=== PATIENT | male | born 1995 | race Caucasian/White ===

== ENCOUNTER 2016-11-01 17:18 | Emergency (ER) | payer OTHER ==
[2016-11-01] MEDS ORDERED: ACETAMINOPHEN 325 MG TAB As Ordered ONE (18:27)
--- NOTE | 2016-11-01 19:43 | EDDOCDS ---
Nurse's Notes [facility] Name: Jeff Montaño Age: 21 yrs Sex: Male : 1995 Arrival Date: 11/01/2016 Time: 17:18 Bed PD Private MD: NO PRIMARY PHYSICIAN, . Diagnosis: Acute upper respiratory infection, unspecified Presentation: 11/01 17:31 Presenting complaint: Patient states: he has a sore throat, coughing, runny nose, ms18 headache, and chest is sore from coughing. Pt states that it started yesterday morning. Adult Sepsis Screening: The patient does not have new or worsening altered mentation. Patient's respiratory rate is less than 22. Systolic blood pressure is greater than 100. Patient has a qSOFA score of 0- Negative Sepsis Screen. Suicide/Homicide risk assessment- the patient denies having any suicidal and/or homicidal ideations and does not present with any other emotional, behavioral or mental health complaints. Status: Patient is not a telegraphic service dispatcher or dependent. Transition of care: patient was not received from another setting of care. 17:31 Acuity: MEERA Level 4 ms18 17:31 Method Of Arrival: Walkin/Carried/Asstd ms18 Triage Assessment: 17:33 General: Appears in no apparent distress, Behavior is appropriate for age, cooperative. ms18 Pain: Location: face, head, throat, back Pain currently is 8 out of 10 on a pain scale. HIV screening NA for this visit Offered previously. Neurological: No deficits noted. Respiratory: Airway is patent Respiratory effort is even, unlabored, Reports cough that is productive. Derm: Skin is pink, warm & dry. Historical: - Allergies: no known allergies; - Home Meds: 1. none - PMHx: none; - PSHx: none; - Social history: Smoking status: Patient uses tobacco products, current every day smoker. No barriers to communication noted, The patient speaks fluent Tongan. - Family history: Not pertinent. - : The pt / caregiver states he / she is not on anticoagulants. Home medication list is obtained from the patient. - Exposure Risk Screening:: None identified. Screenin:32 Screening information is obtained from the patient. Fall risk: No risks identified. jjr Assistance ADL's: requires no assistance with activities of daily living. Abuse/DV Screen: The patient / caregiver reports he/she is: not in a situation that causes fear, pain or injury. Nutritional screening: No deficits noted. Advance Directives: There is no active DNR order. home support is adequate. Assessment: 18:31 General: Appears in no apparent distress, Behavior is appropriate for age. jjr Neurological: No deficits noted. Respiratory: Airway is patent Respiratory effort is even, unlabored, Respiratory pattern is regular. Derm: Skin is dry, Skin is flushed, Skin temperature is hot. 19:32 Reassessment: Patient appears in no apparent distress at this time. Patient states ttb feeling better. Patient states symptoms have improved. pt resting on stretcher. PA aware of vitals. . 19:40 Adult Sepsis Screening: The patient does not have new or worsening altered mentation. ttb Patient's respiratory rate is less than 22. Systolic blood pressure is greater than 100. Patient has a qSOFA score of 0- Negative Sepsis Screen. Neurological: Level of Consciousness is awake, alert. Respiratory: Airway is patent Respiratory effort is even, unlabored, Respiratory pattern is regular, symmetrical. Vital Signs: 17:20 BP 139 / 77 RA Sitting (auto/reg); Pulse 118; Resp 18; Temp 103.6(O); Pulse Ox 99% on rs6 R/A; Weight 90.72 kg (R); Height 5 ft. 10 in. (177.80 cm) (M); Pain 7/10; 19:29 BP 144 / 61; Pulse 100; Resp 18; Temp 100.1(T); Pulse Ox 96% on R/A; ttb 17:20 Body Mass Index 28.70 (90.72 kg, 177.80 cm) [facility] Vitals: 17:20 Log In Time: November 01, 2016 at 17:20. 6 ED Course: 17:19 Patient visited by Joan Palacios PCA. ct3 17:19 Patient moved to Waiting ct3 17:20 NO PRIMARY PHYSICIAN, . is Private Physician. rs6 17:22 Patient visited by Meena Alegria PCA. rs6 17:22 Patient moved to Pre RCE rs6 17:32 Triage Initiated ms18 17:36 Patient moved to Triage 2 jb5 17:40 Michael Glasgow PA is PHCP. btw 17:40 Justin Keenan MD is Attending Physician. btw 17:40 Patient visited by Michael Glasgow PA. btw 18:13 [facility]cd[facility]. dk1 18:13 Justin Keenan MD is Attending Physician. dk1 18:24 Patient moved to PD jjr 18:31 -Influenza A&B Rapid Antigen - Nose Sent. jjr 18:32 Patient visited by Catrachita Nielsen RN. jjr 18:32 The patient / caregiver is instructed regarding the plan of care and ED course. jjr 19:33 Patient visited by Elizabeth Roque RN. ttb 19:34 [facility] is Referral Physician. dk1 19:40 Accompanied by Significant Other, Patient has correct armband on for positive ttb identification. 19:40 No IV's were initiated during this patient's visit. No procedures done that require ttb assistance. Labs drawn. (by ED staff). Administered Medications: 18:31 Drug: Acetaminophen 975 mg [acetaminophen 325 mg tablet (3 tabs)] Route: PO; jjr Order Results: Lab Order: -Influenza A&B Rapid Antigen - Nose; SPEC'M 11/01/16 18:28 Test: INFLUENZA A RAPID SCR by ICA; Value: INFLUENZA A RESULTS NEGATIVE; Status: F Test: INFLUENZA A RAPID SCR by ICA; Value: Comments:; Status: F Test: INFLUENZA B RAPID SCR by ICA; Value: INFLUENZA B RESULTS NEGATIVE; Status: F Test Note: ; The Influenza test is a direct rapid immunoassay for the qualitative detection of Influenza viral antigen. Cell culture (Viral Culture) testing should be considered to confirm NEGATIVE results and to assist in detecting other viruses that can provide similar clinical symptoms. Please contact the lab within 24 hours ([phone]) if confirmatory testing is desired. Outcome: 19:35 Discharge ordered by Provider. dk1 19:40 Discharge Assessment: Patient awake, alert and oriented x 3. No cognitive and/or ttb functional deficits noted. Patient verbalized understanding of disposition instructions. Patient awake and alert. patient administered narcotics - no. The following High Risk Discharge criteria are identified: None. Discharged to home ambulatory, with significant other. Condition: good Condition: stable Condition: improved. Discharge instructions given to patient, significant other, Instructed on discharge instructions, follow up and referral plans. medication usage, Demonstrated understanding of instructions, medications, Pt was receptive of discharge instructions/ teaching. Prescriptions given X 4, Work note provided to patient. No special radiology studies were completed. Property :Personal belongings accompany Pt. 19:42 Patient left the ED. ttb Signatures: Hedy Underwood, RING STRIKER RING STRIKER jb5 Marlon Mcdonough PA-C PAYani dk1 Catrachita Nielsen, RN RN Michael Lopes PA PA btw Joan Palacios, RING STRIKER RING STRIKER ct3 Elizabeth Roque RN RN ttb Ritu Calderon RN RN ms18 Meena Alegria, RING STRIKER RING STRIKER rs6 MTDD
--- NOTE | 2016-11-01 19:43 | EDDOCDS ---
Physician Documentation [facility] Name: Jeff Montaño Age: 21 yrs Sex: Male : 1995 Arrival Date: 11/01/2016 Time: 17:18 Bed PD Private MD: NO PRIMARY PHYSICIAN, . Disposition: 11/01/16 19:35 Discharged to Home/Self Care. Impression: Acute upper respiratory infection, unspecified. - Condition is Stable. - Discharge Instructions: Upper Respiratory Infection, Adult. - Prescriptions for Ibuprofen 800 mg Oral Tablet - take 1 tablet by ORAL route every 8 hours As needed take with food; 30 tablet. Tylenol 325 mg Oral Tablet - take 2 tablet by ORAL route every 6 hours as needed; 1 bottle. Mucinex 600 mg - take 1 tablet by ORAL route 2 times per day; 30 tablet. benzonatate 200 mg Oral Capsule - take 1 capsule by ORAL route 3 times per day As needed; 30 capsule. - Medication Reconciliation, Local Pharmacy Hours, Work Release Form - 2 day form. - [facility] up: [facility]; When: 4 - 5 days; Reason: Continuance of care. Follow up: Emergency Department; When: As needed; Reason: Worsening of conditions. - Problem is new. - Symptoms have improved. Historical: - Allergies: no known allergies; - Home Meds: 1. none - PMHx: none; - PSHx: none; - Social history: Smoking status: Patient uses tobacco products, current every day smoker. No barriers to communication noted, The patient speaks fluent Botswanan. - Family history: Not pertinent. - : The pt / caregiver states he / she is not on anticoagulants. Home medication list is obtained from the patient. - Exposure Risk Screening:: None identified. Vital Signs: 11/01 17:20 BP 139 / 77 RA Sitting (auto/reg); Pulse 118; Resp 18; Temp 103.6(O); Pulse Ox 99% on rs6 R/A; Weight 90.72 kg / 200 lbs (R); Height 5 ft. 10 in. (177.80 cm) (M); Pain 7/10; 19:29 BP 144 / 61; Pulse 100; Resp 18; Temp 100.1(T); Pulse Ox 96% on R/A; ttb 17:20 Body Mass Index 28.70 (90.72 kg, 177.80 cm) rs6 MDM: 18:22 Acetaminophen Tablet 975 mg PO once ordered. dk1 18:22 Obtain sample by nasopharyngeal swab ordered. dk1 18:24 -Influenza A&B Rapid Antigen - Nose Ordered. EDMS 19:29 Recheck Vital Signs, perform reassessment and enter into [employer] ordered. dk1 Administered Medications: 18:31 Drug: Acetaminophen 975 mg [acetaminophen 325 mg tablet (3 tabs)] Route: PO; jjr Signatures: Dispatcher [employer] EDMS Marlon Mcdonough PA-C PA-C dk1 Elizabeth Roque, RN RN ttRitu Cordero RN RN ms18 Catrachita Nielsen RN jjr MTDD
--- NOTE | 2016-11-03 20:43 | EDDOCDS ---
Physician Documentation [facility] Name: Jeff Montaño Age: 21 yrs Sex: Male : 1995 Arrival Date: 11/01/2016 Time: 17:18 Bed PD Private MD: NO PRIMARY PHYSICIAN, . Disposition: 11/01/16 19:35 Discharged to Home/Self Care. Impression: Acute upper respiratory infection, unspecified. - Condition is Stable. - Discharge Instructions: Upper Respiratory Infection, Adult. - Prescriptions for Ibuprofen 800 mg Oral Tablet - take 1 tablet by ORAL route every 8 hours As needed take with food; 30 tablet. Tylenol 325 mg Oral Tablet - take 2 tablet by ORAL route every 6 hours as needed; 1 bottle. Mucinex 600 mg - take 1 tablet by ORAL route 2 times per day; 30 tablet. benzonatate 200 mg Oral Capsule - take 1 capsule by ORAL route 3 times per day As needed; 30 capsule. - Medication Reconciliation, Local Pharmacy Hours, Work Release Form - 2 day form. - Follow up: [facility]; When: 4 - 5 days; Reason: Continuance of care. Follow up: Emergency Department; When: As needed; Reason: Worsening of conditions. - Problem is new. - Symptoms have improved. Historical: - Allergies: no known allergies; - Home Meds: 1. none - PMHx: none; - PSHx: none; - Social history: Smoking status: Patient uses tobacco products, current every day smoker. No barriers to communication noted, The patient speaks fluent Lebanese. - Family history: Not pertinent. - : The pt / caregiver states he / she is not on anticoagulants. Home medication list is obtained from the patient. - Exposure Risk Screening:: None identified. Vital Signs: 11/01 17:20 BP 139 / 77 RA Sitting (auto/reg); Pulse 118; Resp 18; Temp 103.6(O); Pulse Ox 99% on rs6 R/A; Weight 90.72 kg / 200 lbs (R); Height 5 ft. 10 in. (177.80 cm) (M); Pain 7/10; 19:29 BP 144 / 61; Pulse 100; Resp 18; Temp 100.1(T); Pulse Ox 96% on R/A; ttb 17:20 Body Mass Index 28.70 (90.72 kg, 177.80 cm) rs6 MDM: 18:22 Acetaminophen Tablet 975 mg PO once ordered. dk1 18:22 Obtain sample by nasopharyngeal swab ordered. dk1 18:24 -Influenza A&B Rapid Antigen - Nose Ordered. EDMS 19:29 Recheck Vital Signs, perform reassessment and enter into MedHost ordered. dk1 19:44 [facility] Payment Agreement was scanned into [employer] and attached to record. 5 11/02 10:32 T-Sheet-- Draft Copy was scanned into [employer] and attached to record. mm15 Administered Medications: 11/01 18:31 Drug: Acetaminophen 975 mg [acetaminophen 325 mg tablet (3 tabs)] Route: PO; jjr Signatures: Dispatcher [employer] EDMS Marlon Mcdonough PA-C PA-C dk1 Elizabeth Roque, RN RN ttb Jade Lal mm15 Ritu Calderon RN RN ms18 David Urena jp5 Catrachita Nielsen RN jjr The chart was reviewed and I authenticate all verbal orders and agree with the evaluation and treatment provided.Attachments: 19:44 [facility] Payment Agreement 5 11/02 10:32 T-Sheet-- Draft Copy mm15 Chart Complete MTDD
--- NOTE | 2016-11-03 20:43 | EDDOCDS ---
Physician Documentation [facility] Name: Jeff Montaño Age: 21 yrs Sex: Male : 1995 Arrival Date: 11/01/2016 Time: 17:18 Bed PD Private MD: NO PRIMARY PHYSICIAN, . Disposition: 11/01/16 19:35 Discharged to Home/Self Care. Impression: Acute upper respiratory infection, unspecified. - Condition is Stable. - Discharge Instructions: Upper Respiratory Infection, Adult. - Prescriptions for Ibuprofen 800 mg Oral Tablet - take 1 tablet by ORAL route every 8 hours As needed take with food; 30 tablet. Tylenol 325 mg Oral Tablet - take 2 tablet by ORAL route every 6 hours as needed; 1 bottle. Mucinex 600 mg - take 1 tablet by ORAL route 2 times per day; 30 tablet. benzonatate 200 mg Oral Capsule - take 1 capsule by ORAL route 3 times per day As needed; 30 capsule. - Medication Reconciliation, Local Pharmacy Hours, Work Release Form - 2 day form. - Follow up: [facility]; When: 4 - 5 days; Reason: Continuance of care. Follow up: Emergency Department; When: As needed; Reason: Worsening of conditions. - Problem is new. - Symptoms have improved. Historical: - Allergies: no known allergies; - Home Meds: 1. none - PMHx: none; - PSHx: none; - Social history: Smoking status: Patient uses tobacco products, current every day smoker. No barriers to communication noted, The patient speaks fluent Ugandan. - Family history: Not pertinent. - : The pt / caregiver states he / she is not on anticoagulants. Home medication list is obtained from the patient. - Exposure Risk Screening:: None identified. Vital Signs: 11/01 17:20 BP 139 / 77 RA Sitting (auto/reg); Pulse 118; Resp 18; Temp 103.6(O); Pulse Ox 99% on rs6 R/A; Weight 90.72 kg / 200 lbs (R); Height 5 ft. 10 in. (177.80 cm) (M); Pain 7/10; 19:29 BP 144 / 61; Pulse 100; Resp 18; Temp 100.1(T); Pulse Ox 96% on R/A; ttb 17:20 Body Mass Index 28.70 (90.72 kg, 177.80 cm) rs6 MDM: 18:22 Acetaminophen Tablet 975 mg PO once ordered. dk1 18:22 Obtain sample by nasopharyngeal swab ordered. dk1 18:24 -Influenza A&B Rapid Antigen - Nose Ordered. EDMS 19:29 Recheck Vital Signs, perform reassessment and enter into MedHost ordered. dk1 19:44 [facility] Payment Agreement was scanned into [employer] and attached to record. 5 11/02 10:32 T-Sheet-- Draft Copy was scanned into [employer] and attached to record. mm15 Administered Medications: 11/01 18:31 Drug: Acetaminophen 975 mg [acetaminophen 325 mg tablet (3 tabs)] Route: PO; jjr Signatures: Dispatcher [employer] EDMS Marlon Mcdonough PA-C PA-C dk1 Elizabeth Roque, RN RN ttb Jade Lal mm15 Ritu Calderon RN RN ms18 David Urena jp5 Catrachita Nielsen RN jjr The chart was reviewed and I authenticate all verbal orders and agree with the evaluation and treatment provided.Attachments: 19:44 [facility] Payment Agreement 5 11/02 10:32 T-Sheet-- Draft Copy mm15 Chart Complete MTDD
--- NOTE | 2016-11-03 20:43 | EDDOCDS ---
Nurse's Notes [facility] Name: Jeff Montaño Age: 21 yrs Sex: Male : 1995 Arrival Date: 11/01/2016 Time: 17:18 Bed PD Private MD: NO PRIMARY PHYSICIAN, . Diagnosis: Acute upper respiratory infection, unspecified Presentation: 11/01 17:31 Presenting complaint: Patient states: he has a sore throat, coughing, runny nose, ms18 headache, and chest is sore from coughing. Pt states that it started yesterday morning. Adult Sepsis Screening: The patient does not have new or worsening altered mentation. Patient's respiratory rate is less than 22. Systolic blood pressure is greater than 100. Patient has a qSOFA score of 0- Negative Sepsis Screen. Suicide/Homicide risk assessment- the patient denies having any suicidal and/or homicidal ideations and does not present with any other emotional, behavioral or mental health complaints. Status: Patient is not a sales service representative or dependent. Transition of care: patient was not received from another setting of care. 17:31 Acuity: MEERA Level 4 ms18 17:31 Method Of Arrival: Walkin/Carried/Asstd ms18 Triage Assessment: 17:33 General: Appears in no apparent distress, Behavior is appropriate for age, cooperative. ms18 Pain: Location: face, head, throat, back Pain currently is 8 out of 10 on a pain scale. HIV screening NA for this visit Offered previously. Neurological: No deficits noted. Respiratory: Airway is patent Respiratory effort is even, unlabored, Reports cough that is productive. Derm: Skin is pink, warm & dry. Historical: - Allergies: no known allergies; - Home Meds: 1. none - PMHx: none; - PSHx: none; - Social history: Smoking status: Patient uses tobacco products, current every day smoker. No barriers to communication noted, The patient speaks fluent Namibian. - Family history: Not pertinent. - : The pt / caregiver states he / she is not on anticoagulants. Home medication list is obtained from the patient. - Exposure Risk Screening:: None identified. Screenin:32 Screening information is obtained from the patient. Fall risk: No risks identified. jjr Assistance ADL's: requires no assistance with activities of daily living. Abuse/DV Screen: The patient / caregiver reports he/she is: not in a situation that causes fear, pain or injury. Nutritional screening: No deficits noted. Advance Directives: There is no active DNR order. home support is adequate. Assessment: 18:31 General: Appears in no apparent distress, Behavior is appropriate for age. jjr Neurological: No deficits noted. Respiratory: Airway is patent Respiratory effort is even, unlabored, Respiratory pattern is regular. Derm: Skin is dry, Skin is flushed, Skin temperature is hot. 19:32 Reassessment: Patient appears in no apparent distress at this time. Patient states ttb feeling better. Patient states symptoms have improved. pt resting on stretcher. PA aware of vitals. . 19:40 Adult Sepsis Screening: The patient does not have new or worsening altered mentation. ttb Patient's respiratory rate is less than 22. Systolic blood pressure is greater than 100. Patient has a qSOFA score of 0- Negative Sepsis Screen. Neurological: Level of Consciousness is awake, alert. Respiratory: Airway is patent Respiratory effort is even, unlabored, Respiratory pattern is regular, symmetrical. Vital Signs: 17:20 BP 139 / 77 RA Sitting (auto/reg); Pulse 118; Resp 18; Temp 103.6(O); Pulse Ox 99% on rs6 R/A; Weight 90.72 kg (R); Height 5 ft. 10 in. (177.80 cm) (M); Pain 7/10; 19:29 BP 144 / 61; Pulse 100; Resp 18; Temp 100.1(T); Pulse Ox 96% on R/A; ttb 17:20 Body Mass Index 28.70 (90.72 kg, 177.80 cm) [facility] Vitals: 17:20 Log In Time: November 01, 2016 at 17:20. 6 ED Course: 17:19 Patient visited by Joan Palacios PCA. ct3 17:19 Patient moved to Waiting ct3 17:20 NO PRIMARY PHYSICIAN, . is Private Physician. rs6 17:22 Patient visited by Meena Alegria PCA. rs6 17:22 Patient moved to Pre RCE rs6 17:32 Triage Initiated ms18 17:36 Patient moved to Triage 2 jb5 17:40 Michael Glasgow PA is PHCP. btw 17:40 Justin Keenan MD is Attending Physician. btw 17:40 Patient visited by Michael Glasgow PA. btw 18:13 [facility] dk1 18:13 Justin Keenan MD is Attending Physician. dk1 18:24 Patient moved to PD jjr 18:31 -Influenza A&B Rapid Antigen - Nose Sent. jjr 18:32 Patient visited by Catrachita Nielsen RN. jjr 18:32 The patient / caregiver is instructed regarding the plan of care and ED course. jjr 19:33 Patient visited by Elizabeth Roque RN. ttb 19:34 [facility] is Referral Physician. dk1 19:40 Accompanied by Significant Other, Patient has correct armband on for positive ttb identification. 19:40 No IV's were initiated during this patient's visit. No procedures done that require ttb assistance. Labs drawn. (by ED staff). 19:44 [facility] Payment Agreement was scanned into [employer] and attached to record. jp5 11/02 10:32 T-Sheet-- Draft Copy was scanned into [employer] and attached to record. mm15 Administered Medications: 11/01 18:31 Drug: Acetaminophen 975 mg [acetaminophen 325 mg tablet (3 tabs)] Route: PO; jjr Order Results: Lab Order: -Influenza A&B Rapid Antigen - Nose; SPEC'M 11/01/16 18:28 Test: INFLUENZA A RAPID SCR by ICA; Value: INFLUENZA A RESULTS NEGATIVE; Status: F Test: INFLUENZA A RAPID SCR by ICA; Value: Comments:; Status: F Test: INFLUENZA B RAPID SCR by ICA; Value: INFLUENZA B RESULTS NEGATIVE; Status: F Test Note: ; The Influenza test is a direct rapid immunoassay for the qualitative detection of Influenza viral antigen. Cell culture (Viral Culture) testing should be considered to confirm NEGATIVE results and to assist in detecting other viruses that can provide similar clinical symptoms. Please contact the lab within 24 hours ([phone]) if confirmatory testing is desired. Outcome: 19:35 Discharge ordered by Provider. dk1 19:40 Discharge Assessment: Patient awake, alert and oriented x 3. No cognitive and/or ttb functional deficits noted. Patient verbalized understanding of disposition instructions. Patient awake and alert. patient administered narcotics - no. The following High Risk Discharge criteria are identified: None. Discharged to home ambulatory, with significant other. Condition: good Condition: stable Condition: improved. Discharge instructions given to patient, significant other, Instructed on discharge instructions, follow up and referral plans. medication usage, Demonstrated understanding of instructions, medications, Pt was receptive of discharge instructions/ teaching. Prescriptions given X 4, Work note provided to patient. No special radiology studies were completed. Property :Personal belongings accompany Pt. 19:42 Patient left the ED. ttb Signatures: Hedy Underwood, RECONSTRUCTIVE SURGEON RECONSTRUCTIVE SURGEON jb5 Marlon Mcdonough PA-C PA-C dk1 Catrachita Nielsen, RN RN jMichael Perez PA PA btw Joan Palacios, RECONSTRUCTIVE SURGEON RECONSTRUCTIVE SURGEON ct3 Elizabeth Roque, RN RN ttb Jade Lal mm15 Ritu Calderon RN RN ms18 Meena Alegria, RECONSTRUCTIVE SURGEON RECONSTRUCTIVE SURGEON rs6 David Urena jp5 Chart Complete MTDD
== END 2016-11-01 19:42 | disposition home or self-care (01) ==
LOC: M ED 17:18
DX: J06.9 Acute upper respiratory infection, unspecified (principal); F17.200 Nicotine dependence, unspecified, uncomplicated

== ENCOUNTER 2017-03-31 22:37 | Emergency (ER) | payer OTHER ==
[~2017-03-31] VITALS: Ht 177.8 cm; Wt 98.7 kg
[2017-04-01 00:58] VITALS: BP 143/80
--- NOTE | 2017-04-01 08:08 | REP ---
Clinical: Trauma. Technique: AP, lateral, bilateral oblique views left elbow . Findings: Lateral view demonstrates elevation to the anterior fat pad. However, no obvious acute fracture or dislocation is appreciated. No subcutaneous emphysema or radiodense foreign body. Impression: Elevation to the anterior fat pad without obvious acute fracture. Occult injury cannot be excluded and presumptive treatment may be warranted. Signed by Kam Merida MD 04/01/2017 08:00 A
--- NOTE | 2017-04-01 08:15 | REP ---
Clinical: Trauma. Technique: AP, lateral views left humerus . Findings: The osseous structures and joint spaces are intact and normal. There is no evidence for acute fracture or dislocation. Surrounding soft tissues are unremarkable. No subcutaneous emphysema or radiodense foreign body. Impression: Age appropriate examination . No acute fracture or dislocation. Signed by Kam Merida MD 04/01/2017 08:07 A
--- NOTE | 2017-04-01 08:16 | REP ---
Clinical: Trauma. Technique: AP, lateral views left forearm . Findings: The osseous structures and joint spaces are intact and normal. There is no evidence for acute fracture or dislocation. Surrounding soft tissues are unremarkable. No subcutaneous emphysema or radiodense foreign body. Impression: Age appropriate examination . No acute fracture or dislocation. Signed by Kam Merida MD 04/01/2017 08:08 A
== END 2017-04-01 01:19 | disposition home or self-care (01) ==
LOC: M ED 22:37
DX: M79.602 Pain in left arm (principal); F17.210 Nicotine dependence, cigarettes, uncomplicated

== ENCOUNTER 2017-04-30 22:26 | Emergency (ER) | payer OTHER ==
[~2017-04-30] VITALS: Ht 177.8 cm; Wt 90.9 kg
[2017-04-30 22:27] VITALS: BP 145/97
== END 2017-04-30 23:30 | disposition left against medical advice (07) ==
LOC: M ED 22:26
DX: Z04.8 Encounter for examination and observation for other specified reasons (principal); Z53.29 Procedure and treatment not carried out because of patient's decision for other reasons

== ENCOUNTER → 2017-10-02 | Outpatient (REF) | payer OTHER ==
[2017-10-02 14:36] LABS: ALBUMIN 4.6 GM/DL (3.2-5.2); ALBUMIN/GLOBULIN RATIO 1.48 (1.00-1.93); ALKALINE PHOSPHATASE 65 U/L (45-117); ALT/SGPT 88 U/L (12-78); ANION GAP 6 MEQ/L (8-16); AST/SGOT 33 U/L (7-37); BILIRUBIN,TOTAL 1.6 MG/DL (0.2-1.0); BLOOD UREA NITROGEN 12 MG/DL (7-18); CALCIUM LEVEL 9.5 MG/DL (8.5-10.1); CARBON DIOXIDE LEVEL 30 MEQ/L (21-32); CHLORIDE LEVEL 103 MEQ/L (98-107); CHOLESTEROL LEVEL 119 MG/DL (<200); CHOLESTEROL RISK RATIO 3.838 (<5); CREATININE FOR GFR 0.96 MG/DL (0.70-1.30); GLOMERULAR FILTRATION RATE > 60.0 (>60); GLUCOSE, FASTING 93 MG/DL (70-105); HDL CHOLESTEROL 31 MG/DL (>40); LDL CHOLESTEROL 66.2 MG/DL (<100); NON-HDL-C 88 MG/DL; POTASSIUM SERUM 4.3 MEQ/L (3.5-5.1); SODIUM LEVEL 139 MEQ/L (136-145); TOTAL PROTEIN 7.7 GM/DL (6.4-8.2); TRIGLYCERIDES LEVEL 109 MG/DL (<150)
== END ==
LOC: M LAB REF 13:40
DX: Z00.01 Encounter for general adult medical examination with abnormal findings (principal)

== ENCOUNTER → 2017-11-07 | Outpatient (CLI) | payer OTHER | LOC: M RAD 06:12 | DX: K80.50 Calculus of bile duct without cholangitis or cholecystitis without obstruction (principal); K76.0 Fatty (change of) liver, not elsewhere classified | CPT/HCPCS: 76705 ==

== ENCOUNTER 2017-11-22 01:52 | Emergency (ER) | payer OTHER ==
[2017-11-22 03:00] LABS: INFLUENZA A AMPLIFICATION NEGATIVE (NEGATIVE); INFLUENZA B AMPLIFICATION NEGATIVE (NEGATIVE)
[2017-11-22] MEDS: IBUPROFEN 800 MG TAB PO (03:00)
[2017-11-22] MEDS: ACETAMINOPHEN 325 MG TAB PO (03:00)
[2017-11-22] MEDS: AUGMENTIN 500 MG TAB PO (03:15)
== END 2017-11-22 03:32 | disposition home or self-care (01) ==
LOC: M ED 01:52
DX: J02.9 Acute pharyngitis, unspecified (principal); F17.210 Nicotine dependence, cigarettes, uncomplicated
CPT/HCPCS: 87502

== ENCOUNTER 2018-09-07 18:27 | Emergency (ER) | payer OTHER ==
[2018-09-07] MEDS: KETOROLAC TROMETHAMINE 10 MG TAB PO (18:58)
[2018-09-07] MEDS: BACLOFEN 10 MG TAB PO (18:58)
[2018-09-07] MEDS: NORCO, ANEXSIA 5/325MG TABLET (HYDROcodone/ACETAMINOPHEN) PO (19:28)
== END 2018-09-07 20:09 | disposition home or self-care (01) ==
LOC: M ED 18:27
DX: S39.012A Strain of muscle, fascia and tendon of lower back, initial encounter (principal); X50.9XXA Other and unspecified overexertion or strenuous movements or postures, initial encounter; Y92.89 Other specified places as the place of occurrence of the external cause; M54.9 Dorsalgia, unspecified; G89.29 Other chronic pain; F17.200 Nicotine dependence, unspecified, uncomplicated; K87 Disorders of gallbladder, biliary tract and pancreas in diseases classified elsewhere
CPT/HCPCS: 99283

== ENCOUNTER 2020-03-16 21:04 | Emergency (ER) | payer OTHER ==
[~2020-03-16] VITALS: Ht 175.3 cm; Wt 97.2 kg
[~2020-03-16 21:04] MED LIST: AUGM500T34 PO; BACL10TA2 PO; KETO10TAB PO
[2020-03-16 21:05] VITALS: BP 132/80
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
[2020-03-16] MEDS ORDERED: TETANUS/DIPHTHERIA TOX ADSORB ADULT 0.5ML SYR/VIAL (90714) IM ONE (22:00)
[2020-03-16] MEDS ORDERED: DERMABOND TOPICAL SKIN ADHESIVE TOP ONE (22:00)
== END 2020-03-16 22:42 | disposition home or self-care (01) ==
LOC: M ED 21:04
DX: S00.93XA Contusion of unspecified part of head, initial encounter (principal); W22.09XA Striking against other stationary object, initial encounter; Y93.89 Activity, other specified; Y99.8 Other external cause status; Y92.009 Unspecified place in unspecified non-institutional (private) residence as the place of occurrence of the external cause; F17.200 Nicotine dependence, unspecified, uncomplicated

== ENCOUNTER 2022-08-17 23:54 | Emergency (ER) | payer OTHER ==
[~2022-08-17] VITALS: Ht 177.8 cm; Wt 99.5 kg
[2022-08-17 23:54] VITALS: BP 185/103
== END 2022-08-18 01:32 | disposition left against medical advice (07) ==
LOC: M ED 23:54
DX: Z53.21 Procedure and treatment not carried out due to patient leaving prior to being seen by health care provider (principal)

== ENCOUNTER 2023-10-16 10:13 | Observation (INO) | payer OTHER ==
[~2023-10-16] VITALS: Ht 175.3 cm; Wt 74.4 kg
[2023-10-16 10:53] LABS: BASO % 0.3 % (0.0-1.0); EOS % 0.2 % (0.0-3.0); HEMOGLOBIN 17.3 g/dl (13.5-17.5); LYMPH # 2.4 10^3/uL (1.5-5.0); LYMPH % 18.5 % (24.0-44.0); MEAN CORPUSCULAR HEMOGLOBIN 32.6 pg (27.0-33.0); MEAN CORPUSCULAR HGB CONC 35.3 g/dl (32.0-36.5); MEAN CORPUSCULAR VOLUME 92.3 fl (80.0-96.0); MONO # 0.5 10^3/uL (0.0-0.8); MONO % 3.8 % (2.0-8.0); NEUTROPHILS # 9.9 10^3/uL (1.5-8.5); NEUTROPHILS % 76.8 % (36.0-66.0); PLATELET COUNT, AUTOMATED 444 10^3/uL (150-450); RED BLOOD COUNT 5.31 10^6/uL (4.30-6.10); WHITE BLOOD COUNT 12.9 10^3/uL (4.0-10.0)
[2023-10-16 11:05] LABS: INR 1.14; PROTHROMBIN TIME 14.3 SECONDS (12.5-14.5)
[2023-10-16 11:06] LABS: PARTIAL THROMBOPLASTIN TIME 26.3 SECONDS (24.8-34.2)
[2023-10-16 11:15] LABS: LIPASE 40 U/L (12-53)
[2023-10-16 11:17] LABS: ALBUMIN 5.3 G/DL (3.2-5.2); ALKALINE PHOSPHATASE 63 U/L (46-116); ALT/SGPT 27 U/L (7.0-40); AMYLASE 50 U/L (30-118); AST/SGOT 12 U/L (<34); BILIRUBIN,DIRECT 1.1 MG/DL (<0.4); BILIRUBIN,TOTAL 3.8 MG/DL (0.3-1.2); BLOOD UREA NITROGEN 21 MG/DL (9-23); CALCIUM LEVEL 10.3 MG/DL (8.5-10.1); CARBON DIOXIDE LEVEL 27 MMOL/L (20-31); CHLORIDE LEVEL 96 MMOL/L (98-107); GLOMERULAR FILTRATION RATE > 60.0 (>60); GLUCOSE, FASTING 136 MG/DL (60-100); POTASSIUM SERUM 3.8 MMOL/L (3.5-5.1); SODIUM LEVEL 133 MMOL/L (136-145); TOTAL PROTEIN 8.6 G/DL (5.7-8.2)
[2023-10-16] MEDS: ONDANSETRON 4MG 2ML VIAL IV ONE (12:05)
[2023-10-16] MEDS: NS 1,000 ML IV ONE (12:05)
[2023-10-16] MEDS: KETOROLAC 30 MG/ML 1ML VIAL IV ONE (12:05)
[2023-10-16 12:10] LABS: RSV AMPLIFICATION NEGATIVE (NEGATIVE)
[2023-10-16] MEDS ORDERED: HOME MED LIST COMPLETE! XX SCH (13:00)
[2023-10-16] MEDS ORDERED: IBUP200C29 PO (13:00)
[2023-10-16] MEDS: PIPERACILLIN/TAZOBACTAM SOD 3.375 GM in D5W MINI-BAG PLUS 50 ML IV ONE (19:39)
[2023-10-16] MEDS: LR 1,000 ML IV SCH (21:50)
[2023-10-16] MEDS: PANTOPRAZOLE 40MG VIAL IV ONE (21:50)
[2023-10-16 22:18] LABS: TRIGLYCERIDES LEVEL 130 MG/DL (<150)
[2023-10-17] VITALS (8 sets, daily range): BP systolic 170–184; BP diastolic 82–98; TEMP 96.9–98.2; O2SAT 97–99
[2023-10-17 01:25] LABS: ALBUMIN 4.3 G/DL (3.2-5.2); ALKALINE PHOSPHATASE 51 U/L (46-116); ALT/SGPT 21 U/L (7.0-40); AST/SGOT 12 U/L (<34); BILIRUBIN,TOTAL 3.6 MG/DL (0.3-1.2); BLOOD UREA NITROGEN 18 MG/DL (9-23); CALCIUM LEVEL 9.1 MG/DL (8.5-10.1); CARBON DIOXIDE LEVEL 28 MMOL/L (20-31); CHLORIDE LEVEL 102 MMOL/L (98-107); CREATININE FOR GFR 0.89 MG/DL (0.70-1.30); GLOMERULAR FILTRATION RATE > 60.0 (>60); GLUCOSE, FASTING 86 MG/DL (60-100); POTASSIUM SERUM 3.7 MMOL/L (3.5-5.1); SODIUM LEVEL 139 MMOL/L (136-145); TOTAL PROTEIN 7.1 G/DL (5.7-8.2)
[2023-10-17 02:11] LABS: PROCALCITONIN <0.04 ng/ml
[2023-10-17] MEDS: ceFAZolin SOD 1 GM in D5W MINI-BAG PLUS 50 ML IV SCH (06:12)
[2023-10-17] MEDS: PANTOPRAZOLE 40MG VIAL IV SCH (08:21)
[2023-10-17] MEDS ORDERED: ENOXAPARIN 40MG/0.4ML SYRINGE (J1650 PER 10MG) SC SCH (09:00)
[2023-10-17 11:09] LABS: BASO % 0.4 % (0.0-1.0); EOS # 0.4 10^3/uL (0.0-0.5); EOS % 4.7 % (0.0-3.0); HEMATOCRIT 40.5 % (42.0-52.0); LYMPH # 3.5 10^3/uL (1.5-5.0); LYMPH % 38.2 % (24.0-44.0); MEAN CORPUSCULAR HEMOGLOBIN 33.3 pg (27.0-33.0); MEAN CORPUSCULAR HGB CONC 35.3 g/dl (32.0-36.5); MEAN CORPUSCULAR VOLUME 94.4 fl (80.0-96.0); MONO # 0.5 10^3/uL (0.0-0.8); MONO % 5.7 % (2.0-8.0); NEUTROPHILS # 4.7 10^3/uL (1.5-8.5); NEUTROPHILS % 50.8 % (36.0-66.0); PLATELET COUNT, AUTOMATED 296 10^3/uL (150-450); RED BLOOD COUNT 4.29 10^6/uL (4.30-6.10); WHITE BLOOD COUNT 9.3 10^3/uL (4.0-10.0)
[2023-10-17 11:51] LABS: HEMOGLOBIN 14.3 g/dl (13.5-17.5)
[2023-10-17] MEDS ORDERED: LIDOCAINE 2% 100MG/5ML SDV (FOR ANES.) As Ordered ONE (12:52)
[2023-10-17] MEDS ORDERED: propofoL 200 MG/20 ML VIAL As Ordered ONE (12:52)
[2023-10-17] MEDS ORDERED: MIDAZOLAM INJ 2MG/2ML VIAL As Ordered ONE (12:52)
[2023-10-17] MEDS ORDERED: fentaNYL 100 MCG/2 ML INJECTION As Ordered ONE (12:52)
[2023-10-17] MEDS ORDERED: ONDANSETRON 4MG 2ML VIAL As Ordered ONE (12:52)
[2023-10-17] MEDS ORDERED: ROCURONIUM BROMIDE 50MG/5ML VIAL As Ordered ONE (12:52)
[2023-10-17] MEDS ORDERED: LIDOCAINE 1% SDV 30ML VIAL As Ordered ONE (12:54)
[2023-10-17] MEDS: INDOCYANINE GREEN 25MG VIAL (IC-GREEN) As Ordered ONE (12:54)
[2023-10-17] MEDS ORDERED: KETOROLAC 60MG 2ML VIAL As Ordered ONE (12:57)
[2023-10-17] MEDS ORDERED: ACETAMINOPHEN 1000MG 100ML IV BAG As Ordered ONE (12:58)
[2023-10-17] MEDS ORDERED: SUGAMMADEX SODIUM 500 MG/5 ML VIAL (BRIDION) As Ordered ONE (12:59)
[2023-10-17] MEDS: ceFAZolin 1GM VIAL As Ordered ONE (13:20)
[2023-10-17] MEDS ORDERED: ESMOLOL INJ 100MG/10ML VIAL As Ordered ONE (13:27)
[2023-10-17] MEDS ORDERED: oxyCODONE 5MG TAB PO PRN (15:05)
[2023-10-17] MEDS ORDERED: fentaNYL 100 MCG/2 ML INJECTION IV PRN (15:05)
[2023-10-17] MEDS ORDERED: ONDANSETRON 4MG 2ML VIAL IV PRN (15:05)
[2023-10-17] MEDS ORDERED: HYDROMORPHONE HCL 0.5 MG/ 0.5 ML SYRINGE IV PRN (15:05)
[2023-10-17] MEDS ORDERED: LR 1,000 ML IV SCH (15:05)
[2023-10-17] MEDS: ENOXAPARIN 40MG/0.4ML SYRINGE (J1650 PER 10MG) SC SCH (15:52)
[2023-10-17] MEDS: ONDANSETRON 4MG 2ML VIAL IV PRN (16:09)
[2023-10-17] MEDS: KETOROLAC 30 MG/ML 1ML VIAL IV PRN (16:09)
[2023-10-17] MEDS: HYDROMORPHONE HCL 0.5 MG/ 0.5 ML SYRINGE IV PRN (17:03)
[2023-10-18 00:50] VITALS: BP 132/62; TEMP 98.1; O2SAT 99
[2023-10-18 04:58] VITALS: BP 133/66; TEMP 98.1; O2SAT 98
[2023-10-18 06:20] LABS: BASO % 0.2 % (0.0-1.0); HEMOGLOBIN 13.2 g/dl (13.5-17.5); LYMPH # 2.5 10^3/uL (1.5-5.0); LYMPH % 22.9 % (24.0-44.0); MEAN CORPUSCULAR HGB CONC 35.7 g/dl (32.0-36.5); MEAN CORPUSCULAR VOLUME 92.5 fl (80.0-96.0); MONO # 0.6 10^3/uL (0.0-0.8); MONO % 5.4 % (2.0-8.0); NEUTROPHILS # 7.9 10^3/uL (1.5-8.5); NEUTROPHILS % 71.2 % (36.0-66.0); PLATELET COUNT, AUTOMATED 314 10^3/uL (150-450)
[2023-10-18 06:38] LABS: BLOOD UREA NITROGEN 15 MG/DL (9-23); CALCIUM LEVEL 8.5 MG/DL (8.5-10.1); CARBON DIOXIDE LEVEL 26 MMOL/L (20-31); CHLORIDE LEVEL 102 MMOL/L (98-107); CREATININE FOR GFR 0.76 MG/DL (0.70-1.30); GLOMERULAR FILTRATION RATE > 60.0 (>60); GLUCOSE, FASTING 87 MG/DL (60-100); POTASSIUM SERUM 4.2 MMOL/L (3.5-5.1); SODIUM LEVEL 137 MMOL/L (136-145)
[2023-10-18 08:40] VITALS: BP 132/65; TEMP 98.2; O2SAT 99
[2023-10-18] MEDS ORDERED: OXYC1TAB23 PO (10:17)
== END 2023-10-18 12:10 | disposition home or self-care (01) ==
LOC: M ED 10:13 → INTOOBSV 21:01 → M ED INP 21:01 → M MSPAV 10-17 15:50
PROVIDERS: ADMIT Internal Medicine; ATTEND Internal Medicine
DX: K80.20 Calculus of gallbladder without cholecystitis without obstruction (principal); D72.829 Elevated white blood cell count, unspecified; E87.1 Hypo-osmolality and hyponatremia; F17.200 Nicotine dependence, unspecified, uncomplicated; F12.10 Cannabis abuse, uncomplicated
CPT/HCPCS: 47562; 74181; 76705; 80048; 80053; 80076; 81001; 82150; 83605; 83690; 84145; 84478; 85025; 85610; 85730; 87631; 88304; 96361; 96365; 96367; 96372; 96375; 96376; 99284; C9113; J0131; J0665; J0690; J1100; J1170; J1650; J1805; J1885; J2250; J2405; J2543; J3010; Q9968; S2900

== ENCOUNTER 2024-01-23 13:56 | Emergency (ER) | payer OTHER ==
[~2024-01-23] VITALS: Ht 175.3 cm; Wt 75.0 kg
[~2024-01-23 13:56] MED LIST changes: +IBUP200C29 PO; +OXYC1TAB23 PO
[2024-01-23 15:01] LABS: BASO % 0.2 % (0.0-1.0); EOS % 0.2 % (0.0-3.0); HEMATOCRIT 45.7 % (42.0-52.0); HEMOGLOBIN 15.8 g/dl (13.5-17.5); LYMPH # 1.8 10^3/uL (1.5-5.0); LYMPH % 10.4 % (24.0-44.0); MEAN CORPUSCULAR HEMOGLOBIN 33.5 pg (27.0-33.0); MEAN CORPUSCULAR HGB CONC 34.6 g/dl (32.0-36.5); MONO # 0.3 10^3/uL (0.0-0.8); MONO % 1.5 % (2.0-8.0); NEUTROPHILS # 15.5 10^3/uL (1.5-8.5); NEUTROPHILS % 87.4 % (36.0-66.0); PLATELET COUNT, AUTOMATED 400 10^3/uL (150-450); RED BLOOD COUNT 4.71 10^6/uL (4.30-6.10); WHITE BLOOD COUNT 17.7 10^3/uL (4.0-10.0)
[2024-01-23] MEDS ORDERED: ISOVUE-370 76% 100ML VIAL As Ordered ONE (15:23)
[2024-01-23 15:34] LABS: ALBUMIN 4.7 G/DL (3.2-5.2); BILIRUBIN,DIRECT 0.5 MG/DL (<0.4); BILIRUBIN,TOTAL 1.5 MG/DL (0.3-1.2); TOTAL PROTEIN 7.6 G/DL (5.7-8.2)
[2024-01-23] MEDS: KETOROLAC 30 MG/ML 1ML VIAL IV ONE (15:37)
[2024-01-23] MEDS: ONDANSETRON 4MG 2ML VIAL IV ONE (15:37)
[2024-01-23] MEDS: NS 1,000 ML IV ONE (15:38)
[2024-01-23 17:09] LABS: AMPHETAMINES LEVEL URINE NEGATIVE (NEGATIVE)
[2024-01-23 17:10] LABS: COCAINE METABOLITE URINE NEGATIVE (NEGATIVE); METHADONE URINE NEGATIVE (NEGATIVE); OPIATES URINE NEGATIVE (NEGATIVE); PHENCYCLIDINE URINE NEGATIVE (NEGATIVE)
[2024-01-23 17:14] LABS: BARBITURATES URINE NEGATIVE (NEGATIVE); BENZODIAZEPINES URINE NEGATIVE (NEGATIVE)
[2024-01-23] MEDS ORDERED: ONDA4TAB6 PO (17:27)
[2024-01-23] MEDS ORDERED: MIRA3350 PO (17:27)
[2024-01-23 17:34] LABS: CANNABINOIDS URINE POSITIVE (NEGATIVE)
[2024-01-23 17:36] VITALS: BP 138/64; TEMP 98; O2SAT 100
== END 2024-01-23 17:46 | disposition home or self-care (01) ==
LOC: M ED 13:56
DX: K59.00 Constipation, unspecified (principal); Q53.10 Unspecified undescended testicle, unilateral; D72.829 Elevated white blood cell count, unspecified; N20.0 Calculus of kidney; F12.10 Cannabis abuse, uncomplicated; Z90.49 Acquired absence of other specified parts of digestive tract; Z79.83 Long term (current) use of bisphosphonates; Z79.891 Long term (current) use of opiate analgesic; Z79.899 Other long term (current) drug therapy
CPT/HCPCS: 74177; 80047; 80076; 80307; 81001; 83605; 83690; 85025; 87040; 96361; 96374; 99283; 99284; J1885; J2405; Q9967

== ENCOUNTER 2024-03-24 11:41 | Emergency (ER) | payer OTHER ==
[~2024-03-24] VITALS: Ht 177.8 cm; Wt 73.0 kg
[~2024-03-24 11:41] MED LIST changes: +MIRA3350 PO; +ONDA-282 PO
[2024-03-24 13:24] LABS: BASO % 0.2 % (0.0-1.0); EOS % 0.1 % (0.0-3.0); HEMATOCRIT 44.9 % (42.0-52.0); HEMOGLOBIN 15.5 g/dl (13.5-17.5); LYMPH # 1.3 10^3/uL (1.5-5.0); LYMPH % 12.1 % (24.0-44.0); MEAN CORPUSCULAR HEMOGLOBIN 32.7 pg (27.0-33.0); MEAN CORPUSCULAR HGB CONC 34.5 g/dl (32.0-36.5); MEAN CORPUSCULAR VOLUME 94.7 fl (80.0-96.0); MONO # 0.2 10^3/uL (0.0-0.8); MONO % 2.3 % (2.0-8.0); NEUTROPHILS # 8.9 10^3/uL (1.5-8.5); PLATELET COUNT, AUTOMATED 355 10^3/uL (150-450); RED BLOOD COUNT 4.74 10^6/uL (4.30-6.10); WHITE BLOOD COUNT 10.4 10^3/uL (4.0-10.0)
[2024-03-24 13:48] LABS: ALBUMIN 4.9 G/DL (3.2-5.2); BILIRUBIN,DIRECT 0.8 MG/DL (<0.4); BILIRUBIN,TOTAL 2.4 MG/DL (0.3-1.2); TOTAL PROTEIN 7.9 G/DL (5.7-8.2)
[2024-03-24] MEDS ORDERED: ISOVUE-370 76% 100ML VIAL As Ordered ONE (14:20)
[2024-03-24] MEDS: NS 1,000 ML IV ONE (15:28)
[2024-03-24] MEDS: ONDANSETRON 4MG 2ML VIAL IV ONE (15:28)
[2024-03-24] MEDS ORDERED: ONDA-282 PO (17:09)
[2024-03-24 17:16] VITALS: BP 115/70; TEMP 98.9; O2SAT 99
== END 2024-03-24 17:17 | disposition home or self-care (01) ==
LOC: M ED 11:41
DX: R11.2 Nausea with vomiting, unspecified (principal); R19.7 Diarrhea, unspecified; K76.0 Fatty (change of) liver, not elsewhere classified; Z79.83 Long term (current) use of bisphosphonates
CPT/HCPCS: 74177; 80047; 80076; 81001; 83690; 85025; 96361; 96374; 99284; J2405; Q9967

== ENCOUNTER 2024-03-28 06:25 | Emergency (ER) | payer OTHER ==
[~2024-03-28] VITALS: Ht 177.8 cm; Wt 70.1 kg
[2024-03-28 06:25] VITALS: TEMP 98.8; O2SAT 98
[2024-03-28 07:37] LABS: BASO % 0.3 % (0.0-1.0); EOS % 0.3 % (0.0-3.0); HEMATOCRIT 42.7 % (42.0-52.0); HEMOGLOBIN 15.4 g/dl (13.5-17.5); LYMPH # 2.6 10^3/uL (1.5-5.0); LYMPH % 24.2 % (24.0-44.0); MEAN CORPUSCULAR HGB CONC 36.1 g/dl (32.0-36.5); MEAN CORPUSCULAR VOLUME 91.6 fl (80.0-96.0); MONO # 0.4 10^3/uL (0.0-0.8); NEUTROPHILS # 7.7 10^3/uL (1.5-8.5); NEUTROPHILS % 70.9 % (36.0-66.0); PLATELET COUNT, AUTOMATED 357 10^3/uL (150-450); RED BLOOD COUNT 4.66 10^6/uL (4.30-6.10); WHITE BLOOD COUNT 10.9 10^3/uL (4.0-10.0)
[2024-03-28 07:38] VITALS: BP 129/77
[2024-03-28] MEDS: NS 1,000 ML IV ONE (07:57)
[2024-03-28 08:01] LABS: LIPASE 39 U/L (12-53)
[2024-03-28 08:03] LABS: ALBUMIN 4.7 G/DL (3.2-5.2); ALKALINE PHOSPHATASE 56 U/L (46-116); ALT/SGPT 18 U/L (7.0-40); AST/SGOT 9 U/L (<34); BILIRUBIN,DIRECT 0.3 MG/DL (<0.4); BILIRUBIN,TOTAL 4.4 MG/DL (0.3-1.2); BLOOD UREA NITROGEN 12 MG/DL (9-23); CALCIUM LEVEL 9.8 MG/DL (8.5-10.1); CARBON DIOXIDE LEVEL 31 MMOL/L (20-31); CHLORIDE LEVEL 99 MMOL/L (98-107); CREATININE FOR GFR 0.84 MG/DL (0.70-1.30); GLOMERULAR FILTRATION RATE > 60.0 (>60); GLUCOSE, FASTING 106 MG/DL (60-100); POTASSIUM SERUM 3.7 MMOL/L (3.5-5.1); SODIUM LEVEL 137 MMOL/L (136-145); TOTAL PROTEIN 7.5 G/DL (5.7-8.2)
[2024-03-28] MEDS: GASTROGRAFIN SOLUTION 30ML PO SCH (09:23)
[2024-03-28 09:43] LABS: CK-MB VALUE MASS < 1.0 NG/ML (<3.6)
[2024-03-28 09:44] LABS: CPK CREATINE PHOSPHOKINASE 98 U/L (46-171); MB/CK RELATIVE INDEX 1.02 (< OR =4)
[2024-03-28] MEDS ORDERED: ISOVUE-370 76% 100ML VIAL As Ordered ONE (10:41)
[2024-03-28 12:08] LABS: Trichomonas vaginalis (AMP) NOT DETECTED (NEGATIVE)
[2024-03-28 12:45] LABS: GC DNA AMPLIFICATION NEGATIVE (NEGATIVE)
[2024-03-28] MEDS ORDERED: AMOX875T2 PO (12:56)
== END 2024-03-28 13:18 | disposition home or self-care (01) ==
LOC: M ED 06:25
DX: K52.9 Noninfective gastroenteritis and colitis, unspecified (principal); E80.7 Disorder of bilirubin metabolism, unspecified; R00.1 Bradycardia, unspecified; I49.49 Other premature depolarization; F17.200 Nicotine dependence, unspecified, uncomplicated; F12.10 Cannabis abuse, uncomplicated; Z79.2 Long term (current) use of antibiotics; Z79.83 Long term (current) use of bisphosphonates
CPT/HCPCS: 71045; 74177; 80047; 80048; 80076; 81001; 82550; 82553; 83605; 83690; 84484; 85025; 87661; 87810; 87850; 93005; 96360; 96361; 99284; Q9963; Q9967

== ENCOUNTER 2024-12-26 13:04 | Emergency (ER) | payer OTHER ==
[~2024-12-26] VITALS: Ht 175.3 cm; Wt 83.4 kg
[~2024-12-26 13:04] MED LIST changes: +AMOX875T2 PO
[2024-12-26 15:37] LABS: BASO % 0.2 % (0.0-1.0); EOS # 0.1 10^3/uL (0.0-0.5); EOS % 0.3 % (0.0-3.0); HEMATOCRIT 45.8 % (42.0-52.0); HEMOGLOBIN 17.1 g/dl (13.5-17.5); LYMPH # 2.8 10^3/uL (1.5-5.0); LYMPH % 18.1 % (24.0-44.0); MEAN CORPUSCULAR HEMOGLOBIN 33.5 pg (27.0-33.0); MEAN CORPUSCULAR VOLUME 89.8 fl (80.0-96.0); MONO % 6.5 % (2.0-8.0); NEUTROPHILS # 11.4 10^3/uL (1.5-8.5); NEUTROPHILS % 74.7 % (36.0-66.0); PLATELET COUNT, AUTOMATED 398 10^3/uL (150-450); WHITE BLOOD COUNT 15.2 10^3/uL (4.0-10.0)
[2024-12-26 15:41] LABS: LIPASE 45 U/L (12-53); MEAN CORPUSCULAR HGB CONC 37.3 g/dl (32.0-36.5)
[2024-12-26 15:44] LABS: ALBUMIN 4.7 G/DL (3.2-5.2); ALKALINE PHOSPHATASE 55 U/L (40-129); ALT/SGPT 30 U/L (7.0-40); AST/SGOT 17 U/L (<34); BILIRUBIN,DIRECT 0.4 MG/DL (<0.4); BILIRUBIN,TOTAL 5.3 MG/DL (0.3-1.2); BLOOD UREA NITROGEN 15 MG/DL (9-23); CALCIUM LEVEL 9.7 MG/DL (8.5-10.1); CARBON DIOXIDE LEVEL 28 MMOL/L (20-31); CHLORIDE LEVEL 93 MMOL/L (98-107); CREATININE FOR GFR 0.77 MG/DL (0.70-1.30); GLOMERULAR FILTRATION RATE > 60.0 (>60); GLUCOSE, FASTING 106 MG/DL (60-100); POTASSIUM SERUM 3.4 MMOL/L (3.5-5.1); SODIUM LEVEL 133 MMOL/L (136-145); TOTAL PROTEIN 7.9 G/DL (5.7-8.2)
[2024-12-26] MEDS ORDERED: ISOVUE-370 76% 100ML VIAL As Ordered ONE (15:49)
[2024-12-26] MEDS: ONDANSETRON 4MG 2ML VIAL IV ONE (16:05)
[2024-12-26] MEDS: KETOROLAC 30 MG/ML 1ML VIAL IV ONE (16:05)
[2024-12-26] MEDS: NS (Normal Saline) 0.9% 1,000 ML IV ONE (16:09)
[2024-12-26 17:51] LABS: APPEARANCE, URINE CLEAR (CLEAR); BACTERIA, URINE AUTO NEGATIVE (NEGATIVE); BILIRUBIN, URINE AUTO NEGATIVE (NEGATIVE); BLOOD, URINE BLOOD 1+ (NEGATIVE); COLOR, URINE YELLOW (YELLOW); GLUCOSE, URINE (UA) AUTO NEGATIVE (NEGATIVE); KETONE, URINE AUTO 2+ mg/dL (NEGATIVE); LEUKOCYTE ESTERASE, URINE AUTO NEGATIVE (NEGATIVE); NITRITE, URINE AUTO NEGATIVE (NEGATIVE); PROTEIN, URINE AUTO NEGATIVE (NEGATIVE); RBC, URINE AUTO 0 /HPF (0-3); SQUAMOUS EPITHELIAL CELL UR AU 0 /HPF (0-6); UROBILINOGEN, URINE AUTO 0.2 mg/dL (0.0-2.0); WBC, URINE AUTO 0 /HPF (0-3)
[2024-12-26 17:52] LABS: SPECIFIC GRAVITY URINE AUTO >1.060 (1.002-1.035)
[2024-12-26] MEDS ORDERED: ONDA-282 PO (18:16)
[2024-12-26] MEDS ORDERED: AMOX875T2 PO (18:16)
[2024-12-26 18:25] VITALS: BP 137/88; TEMP 98.3; O2SAT 98
[2024-12-26] MEDS: AUGMENTIN 875 MG TAB PO ONE (18:35)
== END 2024-12-26 18:43 | disposition home or self-care (01) ==
LOC: M ED 13:04
DX: K52.9 Noninfective gastroenteritis and colitis, unspecified (principal); R10.32 Left lower quadrant pain; R11.2 Nausea with vomiting, unspecified; Z90.89 Acquired absence of other organs; Z79.2 Long term (current) use of antibiotics; Z79.83 Long term (current) use of bisphosphonates
CPT/HCPCS: 74177; 80048; 80076; 81001; 83690; 85025; 87486; 87581; 87633; 87798; 96361; 96374; 99284; J1885; J2405; Q9967

== ENCOUNTER 2025-08-16 11:31 | Emergency (ER) | payer OTHER ==
[~2025-08-16] VITALS: Ht 175.3 cm; Wt 74.9 kg
[~2025-08-16 11:31] MED LIST changes: +CARA1TAB6 PO; +PROT1TAB2 PO
[2025-08-16] MEDS: NS (Normal Saline) 0.9% 1,000 ML IV ONE (12:23)
[2025-08-16 12:25] LABS: BASO # 0.0 10^3/uL (0.0-0.2); BASO % 0.2 % (0.0-1.0); EOS # 0.1 10^3/uL (0.0-0.5); EOS % 0.6 % (0.0-3.0); LYMPH # 3.4 10^3/uL (1.5-5.0); LYMPH % 28.9 % (24.0-44.0); MONO # 0.6 10^3/uL (0.0-0.8); MONO % 4.8 % (2.0-8.0); NEUTROPHILS # 7.7 10^3/uL (1.5-8.5); NEUTROPHILS % 65.2 % (36.0-66.0); PLATELET COUNT, AUTOMATED 479 10^3/uL (150-450)
[2025-08-16 12:47] LABS: CALCIUM LEVEL 10.1 MG/DL (8.5-10.1); CARBON DIOXIDE LEVEL 20 MMOL/L (20-31); CHLORIDE LEVEL 91 MMOL/L (98-107); CREATININE FOR GFR 0.88 MG/DL (0.70-1.30); GLOMERULAR FILTRATION RATE > 90.0 (>60); POTASSIUM SERUM 4.0 MMOL/L (3.5-5.1); SODIUM LEVEL 130 MMOL/L (136-145)
[2025-08-16 13:30] LABS: CK-MB VALUE MASS < 1.0 NG/ML (<3.6)
[2025-08-16 13:33] LABS: CPK CREATINE PHOSPHOKINASE 56 U/L (46-171)
[2025-08-16] MEDS ORDERED: ISOVUE-370 76% 100 ML VIAL As Ordered ONE (16:36)
[2025-08-16] MEDS: LIDOCAINE VISCOUS 2% SOLN 15 ML UDC PO ONE (16:38)
[2025-08-16] MEDS: MAALOX 30 ML SUSP *UDC PO ONE (16:38)
[2025-08-16] MEDS: HYOSCYAMINE SULFATE 0.125 MG SUBL TABLET PO ONE (16:39)
[2025-08-16] MEDS: FAMOTIDINE 20 MG/2 ML VIAL IVP ONE (16:39)
[2025-08-16 17:03] LABS: KETONE, URINE AUTO RFX 2+ mg/dL (NEGATIVE); LEUKOCYTE ESTERASE UR AUTO RFX NEGATIVE (NEGATIVE); MUCUS, URINE RFX SMALL (NEGATIVE); NITRITE, URINE AUTO RFX NEGATIVE (NEGATIVE); RBC, URINE AUTO RFX 1 /HPF (0-3); SQUAM EPITHELIAL CELL UR AURFX 0 /HPF (0-6); WBC, URINE AUTO RFX 1 /HPF (0-3)
[2025-08-16 17:22] LABS: AMPHETAMINES LEVEL URINE NEGATIVE (NEGATIVE); BARBITURATES URINE NEGATIVE (NEGATIVE); BENZODIAZEPINES URINE NEGATIVE (NEGATIVE); COCAINE METABOLITE URINE NEGATIVE (NEGATIVE); METHADONE URINE NEGATIVE (NEGATIVE); OPIATES URINE NEGATIVE (NEGATIVE); PHENCYCLIDINE URINE NEGATIVE (NEGATIVE)
[2025-08-16 17:25] LABS: CK-MB VALUE MASS < 1.0 NG/ML (<3.6)
[2025-08-16 17:26] LABS: CPK CREATINE PHOSPHOKINASE 38 U/L (46-171)
[2025-08-16 17:36] LABS: CANNABINOIDS URINE POSITIVE (NEGATIVE)
[2025-08-16] MEDS ORDERED: CAPSAICIN 0.1% CR 56.6 GM TOP PRN ×2 (18:10→18:14)
[2025-08-16] MEDS: KETOROLAC 30 MG/ML 1 ML VIAL IV ONE (18:24)
[2025-08-16 20:21] LABS: VENOUS BASE EXCESS -3.7 (-2.0-2.0); VENOUS HCO3 22.7 MMOL/L (23.0-27.0); VENOUS O2 SATURATION 42.0 % (60.0-80.0); VENOUS PARTIAL PRESSURE CO2 45.9 mmHg (38.0-50.0); VENOUS PARTIAL PRESSURE O2 22.2 mmHg (30.0-50.0); VENOUS PH 7.313 UNITS (7.330-7.430); VENOUS STANDARD HCO3 20.0 MMOL/L; VENOUS TOTAL CO2 24.2 MMOL/L (24.0-28.0)
[2025-08-16 20:56] LABS: CALCIUM LEVEL 9.2 MG/DL (8.5-10.1); CARBON DIOXIDE LEVEL 26 MMOL/L (20-31); CHLORIDE LEVEL 96 MMOL/L (98-107); CREATININE FOR GFR 0.87 MG/DL (0.70-1.30); GLOMERULAR FILTRATION RATE > 90.0 (>60); MAGNESIUM LEVEL 2.2 MG/DL (1.8-2.4); POTASSIUM SERUM 3.8 MMOL/L (3.5-5.1); SODIUM LEVEL 137 MMOL/L (136-145)
[2025-08-16] MEDS ORDERED: REGL10TA6 PO (21:33)
[2025-08-16 21:55] VITALS: BP 141/83; TEMP 97.6; O2SAT 100
== END 2025-08-16 22:00 | disposition home or self-care (01) ==
LOC: M ED 11:31
DX: R11.16 Cannabis hyperemesis syndrome (principal); F12.188 Cannabis abuse with other cannabis-induced disorder; R11.2 Nausea with vomiting, unspecified; K21.9 Gastro-esophageal reflux disease without esophagitis; R51.9 Headache, unspecified; F17.200 Nicotine dependence, unspecified, uncomplicated; F10.10 Alcohol abuse, uncomplicated; Z90.89 Acquired absence of other organs; Z79.899 Other long term (current) drug therapy
CPT/HCPCS: 71045; 71275; 74177; 80048; 80307; 81001; 82550; 82553; 82803; 83605; 83735; 84484; 85025; 93005; 93041; 94760; 96361; 96374; 96375; 99285; J1308; J1885; J2765; Q9967